=== PATIENT | male | born 1985 | race African-American/Black ===

== ENCOUNTER 2022-10-16 14:12 | Inpatient (IN) | payer MEDICAID, OTHER ==
[~2022-10-16] VITALS: Ht 182.9 cm; Wt 142.7 kg
[~2022-10-16 14:12] MED LIST: NITROGLYCERIN 50MG PREMIX 250 ML IV NR
[2022-10-16] MEDS ORDERED: MORPHINE SULFATE 4 MG/ML CPJ (NOT FOR IM USE) IV STA (14:22)
[2022-10-16] MEDS ORDERED: SODIUM CHLORIDE 0.9% 1,000 ML IV ONE (14:30)
[2022-10-16 15:02] LABS: CHLORIDE 108 mEq/L (98-107)
[2022-10-16 15:11] LABS: BASOPHILS % 0.4 % (0.0-2.0); EOSINOPHILS % 0.6 % (0.0-5.0); HEMATOCRIT. 40.8 % (42.0-52.0); LYMPHOCYTES % 23.2 % (20.0-50.0); MEAN CORPUSCULAR HEMOGLOBIN 30.3 pg (28.0-32.0); MEAN CORPUSCULAR VOLUME 88.2 fL (80.0-94.0); MEAN PLATELET VOLUME 8.2 fl (7.4-10.4); MONOCYTES % 6.6 % (2.0-8.0); NEUTROPHILS % 69.2 % (40.0-76.0); PLATELET 227 x1000/uL (130-400); RED BLOOD CELL COUNT 4.63 mill/uL (4.7-6.1); RED CELL DISTRIBUTION WIDTH 13.9 % (11.6-14.6)
[2022-10-16] MEDS ORDERED: MORPHINE SULFATE 2 MG/ML CPJ (NOT FOR IM USE) IV ONE (15:45)
[2022-10-16] MEDS ORDERED: ASPIRIN 81MG TABLET PO NR (18:30)
[2022-10-16] MEDS ORDERED: ENOXAPARIN 150MG/ML SYR SUBCUT NR (18:45)
[2022-10-16] MEDS ORDERED: ASPIRIN 325MG TABLET PO NR (18:45)
[2022-10-16] MEDS ORDERED: IOHEXOL-350 100 ML BOTTLE ONE (18:57)
[2022-10-16] MEDS ORDERED: LORAZEPAM 0.5MG TABLET PO PRN (20:45)
[2022-10-16] MEDS ORDERED: DOCUSATE SODIUM 100MG CAPSULE PO PRN (20:45)
[2022-10-16] MEDS ORDERED: IPRATROPIUM/ALBUTEROL 0.5-3(2.5)MG/3ML NEB HHN PRN (20:45)
[2022-10-16] MEDS ORDERED: ACETAMINOPHEN 325MG TABLET PO PRN ×2 (20:45)
[2022-10-16] MEDS ORDERED: HYDROCODONE/ACETAMINOPHEN 5/325MG TABLET PO PRN (20:45)
[2022-10-16] MEDS ORDERED: MORPHINE SULFATE 2 MG/ML CPJ (NOT FOR IM USE) IV NR (20:45)
[2022-10-16] MEDS ORDERED: CLONIDINE 0.1MG TABLET PO PRN (20:45)
[2022-10-16] MEDS ORDERED: ONDANSETRON HCL 4MG/2ML INJ IV PRN (20:45)
[2022-10-16] MEDS ORDERED: NITROGLYCERIN 0.4MG TABLET SL SL NR (20:45)
[2022-10-16] MEDS ORDERED: NALOXONE HCL 0.4MG/ML VIAL IV PRN (21:00)
[2022-10-16] MEDS ORDERED: NITROGLYCERIN 50MG PREMIX 250 ML IV ONE (22:30)
[2022-10-17] VITALS (39 sets, daily range): BP systolic 113–168; BP diastolic 53–127; PULSE 56–85; RESP 11–35; TEMP 98.2–98.8; O2SAT 98
[2022-10-17] MEDS ORDERED: LIDOCAINE HCL/PF 1% 10 MG/ML 5ML VIAL ONE (01:49)
[2022-10-17] MEDS ORDERED: IODIXANOL 320MG/ML 100 ML BOTTLE IV ONE (01:49)
[2022-10-17] MEDS ORDERED: HEPARIN 1000 UNITS/ML 10ML ONE (01:49)
[2022-10-17] MEDS ORDERED: MIDAZOLAM HCL 2 MG/2 ML VIAL ONE (01:50)
[2022-10-17] MEDS ORDERED: FENTANYL CITRATE/PF 50MCG/ML 2ML VIAL ONE (01:50)
[2022-10-17] MEDS ORDERED: METOPROLOL TARTRATE 25MG TABLET PO NR (02:45)
[2022-10-17] MEDS ORDERED: ASPIRIN 81MG TABLET PO NR (02:45)
[2022-10-17] MEDS ORDERED: ACETAMINOPHEN 650MG/20.3ML UDC PO NR (02:45)
[2022-10-17] MEDS ORDERED: SEMA0.25 SQ (04:21)
[2022-10-17 06:28] LABS: BASOPHILS % 0.4 % (0.0-2.0); EOSINOPHILS % 0.7 % (0.0-5.0); HEMATOCRIT. 39.5 % (42.0-52.0); HEMOGLOBIN. 13.8 g/dL (14.0-18.0); LYMPHOCYTES % 24.4 % (20.0-50.0); MEAN CORPUSCULAR HEMOGLOBIN 30.4 pg (28.0-32.0); MEAN CORPUSCULAR VOLUME 87.3 fL (80.0-94.0); MEAN PLATELET VOLUME 8.5 fl (7.4-10.4); MONOCYTES % 7.1 % (2.0-8.0); NEUTROPHILS % 67.4 % (40.0-76.0); PLATELET 238 x1000/uL (130-400); RED BLOOD CELL COUNT 4.52 mill/uL (4.7-6.1)
[2022-10-17] MEDS ORDERED: SODIUM CHLORIDE 0.9% 1,000 ML IV SCH (06:30)
[2022-10-17 06:37] LABS: CHLORIDE 106 mEq/L (98-107)
[2022-10-17] MEDS ORDERED: ASPI-1406 MT (09:17)
[2022-10-17] MEDS ORDERED: AMLO5TAB88 MT (09:40)
[2022-10-17] MEDS ORDERED: AMLODIPINE 5MG TABLET PO SCH (10:00)
[2022-10-17 10:29] LABS: INR 1.1; PARTIAL THROMBOPLASTIN TIME 26.6 sec (23.4-31.0); PROTHROMBIN TIME 11.9 sec (9.6-11.0)
[2022-10-17 10:41] LABS: CREATINE KINASE 886 IU/L (39-308); CREATINE KINASE MB FRACTION 50.4 ng/mL (0.5-3.6)
[2022-10-17] MEDS ORDERED: ASPIRIN 81MG TABLET PO SCH (11:00)
[2022-10-17] MEDS ORDERED: CLOPIDOGREL 75MG TABLET PO SCH (11:00)
[2022-10-17] MEDS ORDERED: ENOXAPARIN 150MG/ML SYR SUBCUT SCH (12:00)
[2022-10-17 13:19] LABS: *AMPHETAMINES SCREEN URINE NEGATIVE (NEGATIVE); *BARBITURATES SCREEN URINE NEGATIVE (NEGATIVE); *BENZODIAZEPINES SCREEN URINE PRESUMTIVE POSITIVE (NEGATIVE); *COCAINE SCREEN URINE NEGATIVE (NEGATIVE); CANNABINOID URINE SCREEN PRESUMTIVE POSITIVE (NEGATIVE); METHADONE URINE SCREEN NEGATIVE (NEGATIVE); OPIATES URINE SCREEN PRESUMTIVE POSITIVE (NEGATIVE); PHENCYCLIDINE URINE SCREEN NEGATIVE (NEGATIVE)
[2022-10-17 16:03] LABS: CREATINE KINASE 765 IU/L (39-308)
[2022-10-17] MEDS ORDERED: ATORVASTATIN CALCIUM 40MG TABLET PO SCH ×2 (21:00)
== END 2022-10-17 22:50 | disposition short-term general hospital (02) | DRG 280 ==
LOC: ER 14:12 → CVICU 19:29 → EDBEDREQTM 19:56 → EDBEDREQ 19:56 → EDBEDREQSVC 22:29 → EDBEDREQTM 22:29 → 8WST 10-17 12:58
PROVIDERS: ADMIT Family Medicine Adult Medicine; ATTEND Family Medicine Adult Medicine
DX: I21.4 Non-ST elevation (NSTEMI) myocardial infarction (principal); N17.0 Acute kidney failure with tubular necrosis; Z68.41 Body mass index [BMI] 40.0-44.9, adult; I11.0 Hypertensive heart disease with heart failure; I50.9 Heart failure, unspecified; I25.10 Atherosclerotic heart disease of native coronary artery without angina pectoris; I45.6 Pre-excitation syndrome; E66.01 Morbid (severe) obesity due to excess calories; Z90.49 Acquired absence of other specified parts of digestive tract
CPT/HCPCS: 36415; 71045; 71275; 74174; 80048; 80053; 80061; 80305; 82550; 82553; 83036; 83735; 84100; 84443; 84484; 85025; 93005; 93306; 93970; 99285; J1644; J1650; J2250; J2270; J3010; J3490; J7030; Q9967